=== PATIENT | female | born 1955 | race Caucasian/White ===

== ENCOUNTER 2022-01-15 09:46 | Emergency (ER) | payer MEDICAID ==
[~2022-01-15] VITALS: Ht 157.5 cm; Wt 80.0 kg
[2022-01-15] MEDS ORDERED: IBUPROFEN 600MG TABLET PO ONE (10:00)
[2022-01-15] MEDS ORDERED: ACETAMINOPHEN 325MG TABLET PO ONE (10:15)
[2022-01-15] MEDS ORDERED: CYCL10TA7 MT (13:04)
[2022-01-15] MEDS ORDERED: GABA-529 MT (13:04)
[2022-01-15 13:24] VITALS: BP 136/65
== END 2022-01-15 13:48 | disposition home or self-care (01) ==
LOC: ER 09:46
DX: S30.0XXA Contusion of lower back and pelvis, initial encounter (principal); V49.59XA Passenger injured in collision with other motor vehicles in traffic accident, initial encounter; Y93.89 Activity, other specified; Y92.488 Other paved roadways as the place of occurrence of the external cause; I10 Essential (primary) hypertension; E11.9 Type 2 diabetes mellitus without complications; Z86.73 Personal history of transient ischemic attack (TIA), and cerebral infarction without residual deficits
CPT/HCPCS: 72100; 72131; 99284